=== PATIENT | female | born 1985 | race Caucasian/White ===

== ENCOUNTER 2023-05-27 20:51 | Emergency (ER) | payer OTHER, SELFPAY ==
--- NOTE | ~2023-05-27 | XR_ITS ---
EXAMINATION: XR chest 2V DATE: 05/27/2023 21:23 INDICATION: Sternal chest pain and shortness of breath TECHNIQUE: PA and lateral views of the chest were obtained. COMPARISON: Chest radiograph dated 06/22/2016 FINDINGS: Mild eventration along the right hemidiaphragm. Chronic calcified left lower lobe nodule consistent w ith old granulomatous disease. No other airspace opacities, pulmonary edema, pleural effusion or pneu mothorax. The cardiomediastinal silhouette is normal. Mild thoracic spondylosis. IMPRESSION: 1. No acute cardiopulmonary disease. Reviewed, dictated and finalized at location A.
[2023-05-27 20:51] VITALS: BP 139/89; PULSE 79; RESP 16; TEMP 36.8; O2SAT 100
--- NOTE | 2023-05-27 21:11 | ECG_ITS ---
Measurements Intervals [place] Rate: 54 P: 57 HI: 146 QRS: 39 QRSD: 111 T: 0 QT: 402 QTc: 384 Interpretive Statements SINUS BRADYCARDIA NONSPECIFIC T-WAVE ABNORMALITY Electronically Signed On 05-28-2023 12:45:29 CDT by Vickey Gamboa M.D.
--- NOTE | 2023-05-27 21:13 | ED.GENADULT ---
HPI - General Adult General Chief complaint: Back Pain/Injury Stated complaint: shortness of breath; pain in back Time Seen by Provider: 05/27/23 20:59 Source: patient Mode of arrival: ambulatory Limitations: no limitations History of Present Illness HPI narrative: 38 yo F with history of HLD, presents to ED concerning that she may have a heart attack. She had some upper back pain that started 2 weeks ago that radiated to her left chest. She recently finished a course of steroid for bronchitis. Today, she experienced chest and epigastric pain after eating some clam chowder. She said she's been undergoing significant anxiety lately. Onset (ago): hour(s) Location: chest Radiation: non-radiation Severity: moderate Quality: burning Pain Consistency: intermittent Relieving factors: none Exacerbating factors: none Associated symptoms: denies other symptoms Treatments prior to arrival: none Related Data Allergies Allergy/AdvReac Type Severity Reaction Status Date / Time No Known Allergies Allergy Unverified 03/14/19 16:50 Review of Systems Constitutional: Constitutional: Reports as per HPI and Reports no additional constitutional complaints Eyes: Eyes: Reports as per HPI and Reports no additional eye complaints ENT: Reports system reviewed and no additional complaints, except as documented and Reports as per HPI Cardiovascular: Cardiovascular: Reports as per HPI and Reports no additional cardiovascular complaints Respiratory: Respiratory: Reports as per HPI and Reports no additional respiratory complaints Gastrointestinal: Gastrointestinal: Reports as per HPI and Reports no additional gastrointestinal complaints Genitourinary: Genitourinary: Reports as per HPI Musculoskeletal: Musculoskeletal: Reports no additional musculoskeletal complaints and Reports as per HPI Integumentary/Breasts: Skin/Breast: Reports system reviewed and no additional complaints, except as docu and Reports as per HPI Neurologic: Reports system reviewed and no additional complaints, except as documented and Reports as per HPI Psychiatric: Psychiatric: Reports no additional psychiatric complaints and Reports as per HPI Endocrine: Endocrine: Reports no additional endocrine complaints and Reports as per HPI Hematologic/Lymphatic: Hematologic/Lymphatic: Reports no additional hematologic/lymphatic complaints and Reports as per HPI Allergic/Immunologic: Allergic/Immunologic: Reports no additional allergic/immunologic complaints and Reports as per HPI [facility] Family History Family History (Updated 01/22/19 @ 15:22 by DOCTOR UNKNOWN) Other Cerebrovascular accident Family history of coronary artery disease Hypertension Social History Social History Smoking status: Current every day smoker Alcohol intake: current Exam Const: General: cooperative, healthy appearing, comfortable, no acute distress, well developed, alert, awake, average body habitus and well nourished Nutritional Appearance: average body habitus and well nourished Orientation/consciousness: oriented to person, oriented to place and oriented to time Limitations: no limitations HENMT: Head: normal to inspection Ears: hearing grossly normal bilaterally, external ears normal and TM's normal bilaterally Face/Nose/Sinus: Normal external nose present, Normal nares present, No nasal polyps present, Normal nasal mucous membranes and turbinates present, Normal septum present, No nasal discharge present, normal facial exam, sinuses nontender and face symmetric Face and sinus: normal facial exam, sinuses nontender and face symmetric Mouth: Yes Normal oral and palatal mucosa present, Yes lip normal, Yes tongue normal, Yes Normal salivary glands and ducts present, Yes oropharynx normal and Yes moist mucous membranes Teeth and gingiva: dentition normal and gingiva normal Throat: posterior oropharynx normal, tonsils normal and uvula midline Eyes: General: appearance normal, both eyes a
--- NOTE | 2023-05-27 21:20 | PC.NURSE ---
2120-PT RETURNS FROM IMAGING VIA HOSPITAL WHEELCHAIR, ESCORTED BY [employer]. LAB CONTACTED, MIXING TECHNICIAN SPOKE WITH FRITZ TO MAKE AWARE OF PENDING LABS.
[2023-05-27] MEDS: FAMOTIDINE 20 MG TABLET 40 MG PO (21:26)
--- NOTE | 2023-05-27 21:28 | PC.NURSE ---
2128-LAB ARRIVES AT BEDSIDE
[2023-05-27 21:30] VITALS: BP 123/70; PULSE 59; RESP 14; O2SAT 97
[2023-05-27 21:40] LABS: Hematocrit 40.9 % (35.0-49.0); Hemoglobin 13.7 g/dL (12.0-15.0); Mean Corpuscular HGB Conc 33.5 g/dL (32.0-36.0); Mean Corpuscular Hemoglobin 32.5 pg (27.0-31.0); Mean Corpuscular Volume 96.9 fL (78.0-102.0); Mean Platelet Volume 10.5 fl (9.2-11.8); Platelet Count Result 246 K/mm3 (150-420); Red Blood Count 4.22 M/mm3 (4.20-5.40); Red Cell Distribution Width 12.2 % (11.6-14.4); White Blood Count 8.6 K/mm3 (4.8-10.8)
[2023-05-27 21:58] LABS: Alanine Aminotransferase 17 U/L (14-59); Albumin Level 3.5 g/dL (3.4-5.0); Alkaline Phosphatase 91 U/L (46-116); Anion Gap 8 mmol/L (8-16); Aspartate Amino Transferase 11 U/L (15-37); Bilirubin,Total 0.1 mg/dL (0.00-1.00); Blood Urea Nitrogen 13 mg/dL (7-18); Calcium 8.7 mg/dL (8.5-10.1); Carbon Dioxide 27 mmol/L (21-32); Chloride 105 mmol/L (98-108); Estimated CRCL calculation 87 ml/min; Estimated Glomerular Filt Rate > 60; Glucose 211 mg/dL (70-99); Osmolality Calculated 296 mOsm/kg (285-295); Potassium 3.9 mmol/L (3.5-5.1); Sodium 140 mmol/L (136-145); Total Protein 6.6 g/dL (6.4-8.2); Troponin I 4.9 ng/L (0.00-60.4)
[2023-05-27 22:00] VITALS: BP 117/51; PULSE 56; RESP 20; O2SAT 96
== END 2023-05-27 22:42 | disposition home or self-care (01) ==
PROVIDERS: Emergency Provider Emergency Medicine; PCP Internal Medicine
DX: K21.9 Gastro-esophageal reflux disease without esophagitis (principal); E78.5 Hyperlipidemia, unspecified; F17.200 Nicotine dependence, unspecified, uncomplicated
CPT/HCPCS: 36415; 71046; 80053; 84484; 85027; 93005; 99284; A9270

== ENCOUNTER 2023-06-21 16:35 | Outpatient (CLI) | payer OTHER, SELFPAY ==
--- NOTE | ~2023-06-21 | MM_ITS ---
EXAMINATION: MM screening jass BI w juan HISTORY: Screening mammogram TECHNIQUE: Craniocaudal and mediolateral oblique 3-D tomosynthesis images were obtained and synthetic 2-D images were generated. CAD analysis was submitted and interpreted. COMPARISON: No prior mammogram is available for comparison at this institution. BREAST PARENCHYMAL COMPOSITION:The breasts are extremely dense, which lowers the sensitivity of mammo graphy. FINDINGS: No suspicious mass, calcification, or architectural distortion are identified in either carlos ast to suggest malignancy. IMPRESSION: No mammographic evidence of malignancy. Recommend routine screening mammography in one year. BI-RADS Category 1: Negative Reviewed, dictated and finalized at location . [facility]
== END 2023-06-21 16:36 | disposition home or self-care (01) ==
LOC: ANHIMG 16:42
PROVIDERS: PCP Internal Medicine; Visit Provider Internal Medicine
DX: Z12.31 Encounter for screening mammogram for malignant neoplasm of breast (principal)
CPT/HCPCS: 77063; 77067

== ENCOUNTER 2024-05-10 09:24 | Outpatient (CLI) | payer OTHER, SELFPAY ==
--- NOTE | ~2024-05-10 | XR_ITS ---
EXAMINATION: XR chest 2V 05/10/2024 09:53 INDICATION: Productive cough and wheezing PROCEDURE: 2 view chest COMPARISON: 08/27/2022 FINDINGS: The lungs are clear. The cardiomediastinal silhouette is within normal limits. There are no pleural effusions. There is no pneumothorax suspected. IMPRESSION: 1: NO ACUTE CARDIOPULMONARY DISEASE. Reviewed, dictated and finalized at location B.
[2024-05-10 09:40] LABS: Basophils Absolute Auto 0.07 K/mm3 (0.00-0.10); Basophils Percent Auto 0.7 % (0.0-1.0); Eosinophils Absolute Auto 0.17 K/mm3 (0.02-0.50); Eosinophils Percent Auto 1.7 % (1.0-6.0); Hematocrit 41.5 % (35.0-49.0); Hemoglobin 14.3 g/dL (12.0-15.0); Immature Granulocyte Absolute 0.04 K/mm3 (0.00-0.00); Immature Granulocyte Percent A 0.4 % (0.0-0.0); Lymphocytes Absolute Auto 2.06 K/mm3 (1.10-4.50); Lymphocytes Percent Auto 20.6 % (18.0-42.0); Mean Corpuscular HGB Conc 34.5 g/dL (32-36); Mean Corpuscular Hemoglobin 32.9 pg (27.0-31.0); Mean Corpuscular Volume 95.4 fL (78.0-102.0); Mean Platelet Volume 10.1 fl (9.2-11.8); Monocytes Absolute Auto 0.73 K/mm3 (0.10-0.90); Monocytes Percent Auto 7.3 % (2.0-11.0); Neutrophils Absolute Auto 6.94 K/mm3 (1.70-7.20); Neutrophils Percent Auto 69.3 % (50.0-70.0); Platelet Count Result 250 K/mm3 (150-420); Red Blood Count 4.35 M/mm3 (4.20-5.40); Red Cell Distribution Width 12.7 % (11.6-14.4)
[2024-05-10 11:03] LABS: Anion Gap 9 mmol/L (4-12); Blood Urea Nitrogen 9 mg/dL (7-18); Carbon Dioxide 29 mmol/L (21-32); Chloride 104 mmol/L (98-108); Estimated Glomerular Filt Rate > 60; Glucose 103 mg/dL (70-99); Osmolality Calculated 292 mOsm/kg (285-295); Potassium 4.1 mmol/L (3.5-5.1); Sodium 142 mmol/L (136-145)
== END 2024-05-10 09:25 | disposition home or self-care (01) ==
LOC: CHSLAB 09:26
PROVIDERS: PCP Internal Medicine; Visit Provider Nurse Practitioner Family
DX: R05.8 Other specified cough (principal); R06.2 Wheezing
CPT/HCPCS: 36415; 71046; 80048; 80053; 85025

== ENCOUNTER 2025-06-17 07:28 | Outpatient (CLI) | payer OTHER, SELFPAY ==
--- OUTSIDE RECORDS SUMMARY | 2025-06-16 14:00 | XMS_ITS | Encounter Summary ---
Author Organization [facility] Address [address] [place] [address] Care Team Providers Care Entry Specialist Name Role Phone Jv Galvan MD Primary Care Provider [phone] Encounter Details Date Type Department Care Team (Late st Contact Info) Description 06/16/2025 2:00 PM REGIONAL MANAGER Lab [address] [id number] Urinary frequency; Sensation of pressure in bladder area Social History Tobacco Use Types Packs/Day Years Used Date Smoking Tobacco: Every Day Cigarettes 1 29.8 Started: 1995 Smokeless Tobacco: Current Alcohol Use Standard Drinks/Week Comments Yes 0 (1 standard drink = 0.6 oz pur e alcohol) AUDIT-C Answer Date Recorded Q1: How often do you have a drink containing alc ohol? Monthly or less 05/19/2025 Q2: How many drinks containi ng alcohol do you have on a typical day when you are drinking? 1 or 2 05/19/2025 Q3: How often do you have si x or more drinks on one occasion? Never 05/19/2025 Personal Safety Answer Date Recorded Have you ever been in or are you currently in a harmful physical or emotional relationship or is someone making you feel afraid or unsafe? Denies 06/09/2025 Comments No Sex and Gender Information Value Date Recorded Sex Assigned at Not on file Legal Sex Female 4:42 PM REGIONAL MANAGER Gender Identity Not on file Sexual Orientation Not on file documented as of this encounter Plan of Treatment Pending Results Name Type Priority Associated Diagnoses Date /Time Urine culture Urine, clean voided Microbiology Routine Urinary frequency Sensation of pressure in bladder area 06/16/2025 2:04 PM REGIONAL MANAGER documented as of this encounter Procedures Procedure Name Priority Date/Time Associated Diagnosis Comments URINALYSIS AND REFLEX TO MICROSCOPIC Routine 06/16/2025 2:04 PM REGIONAL MANAGER Urinary frequency Sensation of pressure in bladder area URINALYSIS, MICROSCOPIC ONLY Routine 06/16/2025 2:04 PM REGIONAL MANAGER Urinary frequency Sensation of pressure in bladder area documented in this encounter Results * (ABNORMAL) Urinalysis, microscopic only (06/16/2025 2:04 PM REGIONAL MANAGER) WBC, ur 0-5 0 - 5 /HPF RBC, ur 0-2 0 - 2 /HPF [facility] ([place]) Epithelial cells, squamous, ur 1-5 0 - 5 /HPF [facility] ([place]) Bacteria, ur 2+(A) [facility] ([place]) Mucous, ur Present(A) [facility] ([place]) Urine, clean voided 06/16/2025 2:04 PM REGIONAL MANAGER 06/16/2025 2:36 PM REGIONAL MANAGER us Ovidio Gordon MD LAB URINE ORDERABLES Final Result [facility] ([place]) [address] [facility] [place] [address] * (ABNORMAL) Urinalysis reflex to microscopic (06/16/2025 2:04 PM REGIONAL MANAGER) Color, ur Straw Yellow Clarity, ur Clear Clear [facility] ([place]) Specific gravity, ur 1.008 1.003 - 1.030 [facility] ([place]) pH, urine 6.0 [facility] ([place]) Comment: Interpretive Data U rine pH is affected by diet, medications, systemic acid-base disturbances, and renal tubular function. pH may affect urinary stone formation. For example, urine pH below 6.0 may help reduce the tendency for calcium phosphate stones and pH greater than 6.0 may reduce the tendency for uric acid stone formation. Source: [facility] Current Interpretive Data was last revised on 2017 Protein, ur ql Negative Negative [facility] ([place]) Glucose, ur ql Negative Negative [facility] ([place]) Ketones, ur Negative Negative [facility] ([place]) Bilirubin, ur Negative Negative [facility] ([place]) Blood, ur Negative Negative [facility] ([place]) Urobilinogen, ur <2.0 <2.0 mg/dL [facility] ([place]) Nitrite, ur Negative Negative [facility] ([place]) Leukocyte esterase, ur 1+(A) Negative [facility] ([place]) UA reflex comment Reflex to microscopic UA will be performed. [facility] ([place]) Urine, clean voided 06/16/2025 2:04 PM REGIONAL MANAGER 06/16/2025 2:36 PM REGIONAL MANAGER us Ovidio Gordon MD LAB URINE ORDERABLES Final Result [facility] ([place]) [address] [facility] [place] [address] documented in this encounter Visit Diagnoses Diagnosis Urinary frequency Sensation of pressure in bladder area documented in this encounter Care Teams Entry Specialist Relationship Specialty Start Date End Date Jv Galvan MD PCP - General 07/20/17 documented as of this encounter
--- NOTE | ~2025-06-17 | MM_ITS ---
EXAMINATION: MM screening jass BI w juan HISTORY: Screening TECHNIQUE: Craniocaudal and mediolateral oblique 3-D tomosynthesis images were obtained and synthetic 2-D images were generated. CAD analysis was submitted and interpreted. COMPARISON: 06/21/2023 BREAST PARENCHYMAL COMPOSITION: The breasts are extremely dense, which lowers the sensitivity of mammography. FINDINGS: There is no evidence of suspicious mass, calcification, or architectural distortion to suggest malignancy in either breast. IMPRESSION: 1. No mammographic evidence of malignancy. 2. Recommend routine screening mammography in one year. BI-RADS Category 1: Negative Reviewed, dictated and finalized at location B. IFIED HYPERBARIC TECHNOLOGIST
--- OUTSIDE RECORDS SUMMARY | 2025-06-17 07:35 | XMS_ITS | Clinical Summary ---
Author Organization [facility] [employer] Address [address] [place] [address] Care Team Providers Care Timber Treating Tank Operator Name Role Phone Unavailable Primary Care Provider Unavailabl e Source Comments [facility] [employer],non-owned Affiliates and Associated Physician Practices is amultiple site organization consisting of ambulatory clinics and hospital sitesin [place], [place], [place] and [place]. This disclosure is being madepursuant to the Care Everywhere program and may not contain all information available regarding this patient. Last updated 18.[employer] [employer] [facility] Allergies No known active allergies Medications * Be aware that medications may not be up to date on this document. Alwaysverify current medications with the patient. No known medications Social History Tobacco Use Types Packs/Day Years Used Date Smoking Tobacco: Every Day Smokeless Tobacco: Never Comments No Sex and Gender Information Value Date Recorded Sex Assigned at Not on file Legal Sex Female 7:00 AM GRINDING MACHINE OPERATOR Gender Identity Not on file Sexual Orientation Not on file Last Filed Vital Signs Vital Sign Reading Time Taken Comments Blood Pressure 140/90 10/16/2018 10:08 AM GRINDING MACHINE OPERATOR Pulse 93 10/16/2018 10:08 AM GRINDING MACHINE OPERATOR Temperature 38.2 C (100.8 F) 10/16/2018 10:08 AM GRINDING MACHINE OPERATOR Respiratory Rate 16 10/16/2018 10:08 AM GRINDING MACHINE OPERATOR Oxygen Saturation 97% 10/16/2018 10:08 AM GRINDING MACHINE OPERATOR Inhaled Oxygen Concentration - - Weight 81.6 kg (180 lb) 10/16/2018 10:08 AM GRINDING MACHINE OPERATOR Height 165.1 cm (5' 5) 10/16/2018 10:08 AM GRINDING MACHINE OPERATOR Body Mass Index 29.95 10/16/2018 10:08 AM GRINDING MACHINE OPERATOR Plan of Treatment Health Maintenance Due Date Last Done Comments LIPID TESTING 1985 MAMMOGRAM 1985 HIV SCREENING 1998 HEPATITIS C SCREENING 05/08/2001 DTAP/TDAP/TD VACCINES (1 - Tdap) 2002 HEPATITIS B VACCINE (1 of 3 - 19+ 3-dose series) 2002 HPV VACCINE (1 - 3-dose SCDM series) 2010 DEPRESSION SCREENING 08/14/2024 COVID-19 VACCINE (1 - 2023-2 5 season) 2025 INFLUENZA VACCINE (#1) 2025 ZOSTER VACCINE (1 of 2) 2033 HIB VACCINE Aged Out No longer eligi ble based on patient's age to complete this topic MENINGOCOCCAL (Group B) VACC INE SHARED DECISION-MAKING Aged Out No longer eligibl e based on patient's age to complete this topic MENINGOCOCCAL GROUPS A/C/Y/W VACCINE Aged Out No longer eligible b ased on patient's age to complete this topic PNEUMOCOCCAL VACCINE Aged Out No long er eligible based on patient's age to complete this topic Insurance * Guarantor: [employer] Account Type Relation to Patient Date of Phone Billing Address Personal/Family Self 1985 [address] [place] [address] [facility] * Guarantor: [employer] Account Type Relation to Patient Date of Phone Billing Address Personal/Family Self 1985 [address] [place] [address]
--- OUTSIDE RECORDS SUMMARY | 2025-06-17 07:35 | XMS_ITS | Encounter Summary ---
Author Organization [facility] Address [address] [place] [address] Phone Care Team Providers Care Timber Management Specialist Name Role Phone Jv Galvan MD Primary Care Provider [phone] Encounter Details Date Type Department Care Team (Late st Contact Info) Description 06/16/2025 Results Follow-Up [facility] Medicine Obstetrics and Gynecology [address] [facility] 7th [address] [place] [address] Ovidio Gordon MD [address] [place] [address] Surgical pathology Social History Tobacco Use Types Packs/Day Years [...] on file Legal Sex Female 4:42 PM TIGHTENING MACHINE OPERATOR Gender Identity Not on file Sexual Orientation Not on file documented as of this encounter Miscellaneous Notes * Telephone Encounter - Kathryn Apodaca RN - 06/16/2025 1:03 PM CST Call to patient and reviewed benign pathology result. C/o urinary frequency & some bladder pressure. Patient to leave UA at [facility] today to r/o UTI. She is PO 1 week LSC supracervical hyst, sacrocolpopexy, Celaya culdoplasty &cysto with Dr. Gordon. TENING MACHINE OPERATOR * Telephone Encounter - Kathryn Apodaca RN - 06/16/2025 12:41 PM TIGHTENING MACHINE OPERATOR ----- Message from Ovidio Gordon MD sent at 06/16/2025 12:38 PM TIGHTENING MACHINE OPERATOR ----- Please notify pt of benign surg path report. ----- Message ----- From: Interface, Lab Results In Sent: 06/13/2025 4:11 PM TIGHTENING MACHINE OPERATOR To: Ovidio Gordon MD TENING MACHINE OPERATOR documented in this encounter Plan of Treatment Pending Results Name Type Priority Associated Diagnoses Date /Time Urine culture Urine, clean voided Microbiology Routine Urinary frequency Sensation of pressure in bladder area 06/16/2025 2:04 PM TIGHTENING MACHINE OPERATOR Scheduled Orders Name Type Priority Associated Diagnoses Orde r Schedule Urine culture Urine, clean voided Microbiology Routine Urinary frequency Sensation of pressure in bladder area Expected: 06/19/2025, Expires: 06/16/2026 documented as of this encounter Results * (ABNORMAL) Urinalysis reflex to microscopic (06/16/2025 2:04 PM TIGHTENING MACHINE OPERATOR) Color, ur Straw Yellow Clarity, ur Clear Clear [facility] ([place]) Specific gravity, ur 1.008 1.003 - 1.030 [facility] ([place]) pH, urine 6.0 [facility] ([place]) Comment: Interpretive Data U rine pH is affected by diet, medications, systemic acid-base disturbances, and renal tubular function. pH may affect urinary stone formation. For example, urine pH below 6.0 may help reduce the tendency for calcium phosphate stones and pH greater than 6.0 may reduce the tendency for uric acid stone formation. Source: [facility] [employer] Current Interpretive Data was last revised on [...] Reflex to microscopic UA will be performed. [facility] ([place]) Urine, clean voided 06/16/2025 2:04 PM TIGHTENING MACHINE OPERATOR 06/16/2025 2:36 PM TIGHTENING MACHINE OPERATOR us Ovidio Gordon MD LAB URINE ORDERABLES Final Result [facility] ([place]) [address] [facility] Department [place] [address] documented in this encounter Visit Diagnoses Diagnosis Urinary frequency- Primary Sensation of pressure in bladder area documented in this encounter Care Teams Timber Management Specialist Relationship Specialty Start Date End Date Jv Galvan MD PCP - General 07/20/17 documented as of this encounter
--- OUTSIDE RECORDS SUMMARY | 2025-06-17 07:35 | XMS_ITS | Clinical Summary ---
Author Organization [facility] Address [address] [place] [address] Care Team Providers Care Yarn Salvager Name Role Phone Jv Galvan MD Primary Care Provider [phone] Allergies Active Allergy Reactions Criticality Noted Date Comments Chicken Derived Unknown 05/19/2025 Medications albuterol HFA (PROVENTIL HFA,VENTOLIN HFA,PROAIR HFA) 90 mcg/actuation inhalerIndicatio ns:Mild intermittent asthma with acute exacerbation Inhale 2 puffs every 6 (six) hours as needed for wheezing 1 each 3 Active tirzepatide 5 mg/0.2 mL syringeIndicatio ns:weight loss Inject 5 mg under the skin every 7 days Active cyclobenzaprine (FLEXERIL) 10 mg tablet Take 1 tablet (10 mg total) by mouth 3 (three) times a day as needed for muscle spasms Active acetaminophen 500 mg capsuleIndicatio ns:Pain Take 2 capsules (1,000 mg total) by mouth every 6 (six) hours 30 tablet 2 5 Active ibuprofen (ADVIL,MOTRIN) 600 mg tabletIndication s:Pain,Postopera tive Acute Pain Take 1 tablet (600 mg total) by mouth every 6 (six) hours 30 tablet 2 5 Active ondansetron (ZOFRAN) 4 mg tablet Take 1 tablet (4 mg total) by mouth 4 (four) times a day as needed for nausea or vomiting 20 tablet 5 Active oxyCODONE (ROXICODONE) 5 mg immediate release tabletIndication s:Pain Take 1 tablet (5 mg total) by mouth every 4 (four) hours as needed for pain 15 tablet 5 Active polyethylene glycol (MIRALAX) 17 gram/dose bulk powderIndication s:constipation Take 17 g by mouth daily 298 g 5 Active estradioL (ESTRACE) 0.01 % (0.1 mg/gram) vaginal cream Apply nightly to vagina for 1 week, then Monday// Monday 42.5 g 5 5 02/06/20 26 Active albuterol HFA (PROVENTIL HFA,VENTOLIN HFA,PROAIR HFA) 90 mcg/actuation inhalerIndicatio ns:Mild intermittent asthma with acute exacerbation Inhale 2 puffs every 6 (six) hours as needed for wheezing 1 each 2 05/19/20 Discontinu ed(Error) cyclobenzaprine (FLEXERIL) 10 mg tablet Take 1 tablet (10 mg total) by mouth 3 (three) times a day 5 05/19/20 Discontinu ed(Therapy completed) famotidine (PEPCID) 40 mg tablet daily 3 05/19/20 Discontinu ed(Error) Active Problems Problem Noted Date Diagnosed Date Uterovaginal prolapse 06/09/2025 Skin lesion 05/19/2025 Overview (05/19/2025): Right Cheek Pulmonary nodule 05/19/2025 Polyarthralgia 05/19/2025 Hemorrhoid 05/19/2025 Hiatal hernia with GERD 05/19/2025 GERD (gastroesophageal reflux disease) Epigastric pain 05/19/2025 Cyst of bone of left hand 05/19/2025 Overview (05/19/2025): 3rd Metacarpal Chest pain due to GERD 05/19/2025 Cellulitis of arm 05/19/2025 Overview (05/19/2025): Right Upper Limb Bronchitis 05/19/2025 Bilateral knee pain 05/19/2025 Laguerre's cyst, right 05/19/2025 Acute meniscal tear, lateral 05/19/2025 Urethral sphincter deficiency, intrinsic (ISD) 0 02/28/2025 Incomplete uterovaginal prolapse 02/21/2025 Chronic constipation 02/21/2025 Mixed stress and urge urinary incontinence 02/21 Urinary retention with incomplete bladder emptyi ng 02/21/2025 Tear of left glenoid labrum 03/09/2017 Shoulder dislocation, left, sequela 02/21/2017 Overview (05/19/2025): Subluxation X 2 - Follows Ortho Encounters Date Type Department Care Team Description 06/16/2025 2:[address] [address] Urinary frequency; Sensation of pressure in bladder area 06/16/2025 Results Follow-Up [facility] Ob[facility]etrics [facility] [address] [facility] 7th Floor [address] [place] [phone] Ovidio Gordon MD Surgical pathology 06/11/2025 Telephone [facility] Ob[facility]etrics [facility] Gynecology [address] [place] [phone] Cherie Richmond RN Post-Op Call 06/09/2025 7:30 AM CDT - 06/09/2025 1:15 PM CDT Surgery [facility] [address] [place] [address] Ovidio Gordon MD XI SUPRACERVICAL HYSTERECTOMY - LAPAROSCOPIC ROBOTIC ASSISTED 06/09/2025 7:28 AM CDT Anesthesia Event [facility] [address] [place] [address] Cooper Alonso MD Gupte, Gaurang, MD 06/09/2025 5:20 AM CDT - 06/10/2025 11:51 AM CDT Hospital Encounter [address] [address] Ovidio Gordon MD Incomplete uterovaginal prolapse; Mixed stress and urge urinary incontinence; Urethral sphincter deficiency, intrinsic (ISD) Discharge Disposition: Discharge to home or self care 06/06/2025 Telephone [facility] Ob[facility]etric[facility]cology [address] [facility] 7th Floor [address] [place] [address] Tricia Rowland 05/19/2025 4:00 PM CDT Office Visit [facility] [address] [place] [address] Floor [address] [place] [phone] Ovidio Gordon MD Incomplete uterovaginal prolapse (Primary Dx); Mixed stress and urge urinary incontinence; Urethral sphincter deficiency, intrinsic (ISD) 05/19/2025 2:00 PM CDT Pre-Admission Testing [facility] for Preoperative Assessment and Planning [facility] ([facility]) [address] [place] [phone] Pre-op examination (Primary Dx); Incomplete uterovaginal prolapse; Mixed stress and urge urinary incontinence; Urethral sphincter deficiency, intrinsic (ISD) 03/31/2025 8:40 AM CDT Office Visit [facility]etric[facility]necology [address] [place] [address] Floor [address] [place] [address] Ovidio Gordon MD Incomplete uterovaginal prolapse (Primary Dx); Mixed stress and urge urinary incontinence; Urethral sphincter deficiency, intrinsic (ISD) 03/21/2025 8:20 AM CDT - 03/21/2025 11:59 PM CDT Hospital Encounter [facility] [address] [place] [address] Incomplete uterovaginal prolapse; Constipation by outlet dysfunction Discharge Disposition: Discharge to home or self care from Last 3 Months Immunizations Immunization Administration Dates Next Due DTP 02/06/1989, 5,1983,1983, 983 IPV 02/06/1989, 5,1983,1983, 983 MMR 03/30/1992,08/16/1984 OPV 02/06/1989, 5,1983,1983, 983 Tetanus toxoid, adsorbed 06/28/2016,06/15/2016 ZOSTER LIVE 06/28/2016,06/15/2016 Surgical History Surgery Date Site/Laterality Comments TONSILLECTOMY Tonsillectomy HERNIA REPAIR 2019 Hernia repair Medical History Medical History Date Comments Hx Other Medical Back pain PONV (postoperative nausea and vomiting) Asthma 1985 Urinary incontinence 2007 Rectocele 2011 Motion sickness Family History Medical History Relation Name Comments defects Other 1 Aunt clubbed foot Diabetes type II Other 1 Aunt clubbed foot Family history of Diabetes mellitus type 2; Arthritis Other 2 Son clubbed feet Family hist ory of Arthritis; defects Other 2 Son clubbed feet Hypertension Other 3 Family history of Hypertension; Mental illness Other 4 Family histor y of Mental illness; Relation Name Status Comments Other 1 Aunt clubbed foot Other 2 Son clubbed feet Other 3 Other 4 Social History Tobacco Use Types Packs/Day Years Used Date Smoking Tobacco: Every Day Cigarettes 1 29.8 Started: 1995 Smokeless Tobacco: Current Tobacco Cessation:Ready to Q uit: Not Asked; Counseling Given: Not Answered Alcohol Use Standard Drinks/Week Comments Yes 0 [...] on file Legal 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 Gender Identity Not on file Sexual Orientation Not on file Obstetrics History Para Term AB IAB SAB Ectopic Multiple Livin g Live Births 2 Date Outcome GA Total Labor Labor/2nd/3rd Weight Sex Type Anes PTL Sierra A1 A5 Name Clin Vaginal Vaginal Last Filed Vital Signs Vital Sign Reading Time Taken Comments Blood Pressure 132/84 06/10/2025 12:05 AM CDT Pulse 62 06/10/2025 12:05 AM CDT Temperature 37.2 C (98.9 F) 06/10/2025 12:05 AM CDT Respiratory Rate 18 06/10/2025 12:05 AM CDT Oxygen Saturation 98% 06/10/2025 12:05 AM CDT Inhaled Oxygen Concentration - - Weight 86.6 kg (191 lb) 06/09/2025 5:51 AM CDT Height 165.1 cm (5' 5) 06/09/2025 5:51 AM CDT Body Mass Index 31.78 06/09/2025 5:51 AM CDT Plan of Treatment Health Maintenance Due Date Last Done Comments Breast Cancer Screening-Mammogram 1983 Cervical Cancer Screening 1985 Depression Screening 1985 Hepatitis C Screening 1983 Hepatitis B Screening 2001 Regular Well Visit/Exam 18-64 2001 Pneumococcal vaccine <65 (1 of 2 - PCV) 2002 HPV Vaccines (1 - 3-dose SCD M series) 2010 DTaP/Tdap/Td Vaccine (6 - Tdap) 06/29/2016 06/28/2016, 06/15/2016, 02/06/1989, Additional history exists Varicella Vaccines (1 of 2 - 13+ 2-dose series) 07/26/2016 Covid-19 Vaccine ( - 2024-2 6 season) 2025 11/27/2020, 10/30/2020 Influenza Vaccine (#1) 2025 Medical Devices Implanted Type Area Poultry Sexer Device Identifier Shelf Expiration Date Model / Serial / Lot [employer] Mesh Surgical Pelvic Synthetic Vertessa Lite 4x22cm [id number] - [id number] Implanted:Qty: 1 on 06/09/2025 by Ovidio Gordon MD at [facility] Mesh N/A: Pelvis [employer] 01/14/2029 [id number] / / [id number] [employer] Tvt Prolene 45x1.1cm Tape Mesh Transvaginal Blue [id number] - [id number] Implanted:Qty: 1 on 06/09/2025 by Ovidio Gordon MD at [facility] Other - see comments N/A: Urethra [employer] Surgery 2027 [id number] / / [id number] [place] Suture Pushlock Biocomposite Short L12.5 Mm Od2.9 Mm Cannulated Eyelet Handle Inspector Dials Sterile Disposable - [id number] - [id number] Implanted:Qty: 4 on 07/20/2017 by Abiodun Hairston MD at [facility] Left: Shoulder [employer] [id number] 02/10/2019 [id number] C / [id number] / [id number] Procedures Procedure Name Priority Date/Time Associated Diagnosis Comments URINALYSIS, MICROSCOPIC ONLY Routine 06/16/2025 2:04 PM RULING TECHNICIAN Urinary frequency Sensation of pressure in bladder area URINALYSIS AND REFLEX TO MICROSCOPIC Routine 06/16/2025 2:04 PM RULING TECHNICIAN Urinary frequency Sensation of pressure in bladder area EGFR Routine 06/10/2025 5:17 AM CDT BASIC METABOLIC PANEL Routine 06/10/2025 5:17 AM CDT CBC WITHOUT DIFFERENTIAL Routine 06/10/2025 5:17 AM CDT SURGICAL PATHOLOGY Routine 06/09/2025 12 :01 PM CDT Incomplete uterovaginal prolapse Mixed stress and urge urinary incontinence Urethral sphincter deficiency, intrinsic (ISD) MI AN PROCEDURE PLACEHOLDER Routine 06/09/2025 7:49 AM CDT MI AN PROCEDURE PLACEHOLDER Routine 06/09/2025 7:48 AM CDT MI AN ELECTIVE ENDOTRACHEAL AIRWAY Routine 06/09/2025 7:48 AM CDT CYSTOSCOPY 06/09/2025 7:33 AM CDT Incomplete uterovaginal prolapse Mixed stress and urge urinary incontinence Urethral sphincter deficiency, intrinsic (ISD) SLING - URETHRAL 06/09/2025 7:33 AM CDT Incomplete uterovaginal prolapse Mixed stress and urge urinary incontinence Urethral sphincter deficiency, intrinsic (ISD) COLPOPEXY ROBOTIC XI 06/09/2025 7:33 AM CDT Incomplete uterovaginal prolapse Mixed stress and urge urinary incontinence Urethral sphincter deficiency, intrinsic (ISD) XI SALPINGO/OOPHORECTO MY - LAPAROSCOPIC ROBOTIC ASSISTED 06/09/2025 7:33 AM CDT Incomplete uterovaginal prolapse Mixed stress and urge urinary incontinence Urethral sphincter deficiency, intrinsic (ISD) XI HYSTERECTOMY - LAPAROSCOPIC ROBOTIC ASSISTED 06/09/2025 7:33 AM CDT Incomplete uterovaginal prolapse Mixed stress and urge urinary incontinence Urethral sphincter deficiency, intrinsic (ISD) TYPE AND SCREEN STAT 06/09/2025 6:15 AM CDT POCT HCG, URINE Routine 06/09/2025 6:00 AM CDT DIFFERENTIAL AUTO Routine 05/19/2025 3:3 6 PM CDT Incomplete uterovaginal prolapse Mixed stress and urge urinary incontinence Urethral sphincter deficiency, intrinsic (ISD) CBC WITH AUTO DIFFERENTIAL Routine 05/19/2025 3:36 PM CDT Incomplete uterovaginal prolapse Mixed stress and urge urinary incontinence Urethral sphincter deficiency, intrinsic (ISD) TYPE AND SCREEN 14 DAY Routine 05/19/2025 3:36 PM CDT Incomplete uterovaginal prolapse Mixed stress and urge urinary incontinence Urethral sphincter deficiency, intrinsic (ISD) HCG, URINE, QUALITATIVE Routine 05/19/2025 3:36 PM CDT Pre-op examination URINALYSIS AND REFLEX TO MICROSCOPIC AND CULTURE Routine 05/19/2025 3:36 PM CDT Pre-op examination FL ENEMA W/DEFECO Schedule Routine, Read Routine (OP Routine) 03/21/2025 9:48 AM CDT Incomplete uterovaginal prolapse Constipation by outlet dysfunction from Last 3 Months Results * (ABNORMAL) Urinalysis reflex to microscopic (06/16/2025 2:04 PM RULING TECHNICIAN) Color, ur Straw Yellow Clarity, ur Clear Clear [facility] ([place]) Specific gravity, ur 1.008 1.003 - 1.030 [facility] ([place]) pH, urine 6.0 [facility] ([place]) Comment: Interpretive Data U rine pH is affected by diet, medications, systemic acid-base disturbances, and renal tubular function. pH may affect urinary stone formation. For example, urine pH below 6.0 may help reduce the tendency for calcium phosphate stones and pH greater than 6.0 may reduce the tendency for uric acid stone formation. Source: [facility] [employer] Current Interpretive Data was last revised on [...] ([place]) Urine, clean voided 06/16/2025 2:04 PM RULING TECHNICIAN 06/16/2025 2:36 PM RULING TECHNICIAN us Ovidio Gordon MD LAB URINE ORDERABLES Final Result [facility] ([place]) [address] [facility] Department [place] [address] * (ABNORMAL) Urinalysis, microscopic only (06/16/2025 2:04 PM RULING TECHNICIAN) WBC, ur 0-5 0 - 5 /HPF RBC, ur 0-2 0 - 2 /HPF [facility] ([place]) Epithelial cells, squamous, ur 1-5 0 - 5 /HPF [facility] ([place]) Bacteria, ur 2+(A) [facility] ([place]) Mucous, ur Present(A) [facility] ([place]) Urine, clean voided 06/16/2025 2:04 PM RULING TECHNICIAN 06/16/2025 2:36 PM RULING TECHNICIAN us Ovidio Gordon MD LAB URINE ORDERABLES Final Result [facility] ([place]) [address] [facility] Department [place] [address] * eGFR (06/10/2025 5:17 AM CDT) eGFR 80 >=60 mL/min/1. 73 m2 Comment: Interpretive Data Reference Interval Normal >/= 90 mL/min/1.73m2 Mildly decreased* 60 - 89 mL/min/1.73m2 Mildly to moderately decreased 45 - 59 mL/min/1.73m2 Moderately to severely decreased 30 - 44 mL/min/1.73m2 Severely decreased 15 - 29 mL/min/1.73m2 Kidney Failure < 15 mL/min/1.73m2 *Relative to young adult level Estimated glomerular filtration rate is determined by the 2020 CKD-EPI equation recommended by the National Kidney Foundation (A Unifying Approach to GFR Estimation: Recommendations of the NKF-ASK Task Force on Reassessing the Inclusion of Race in Diagnosing Kidney Disease, JASN 2020). The CKD-EPI equation should not be used for patients with unstable renal function and has not been validated in children and those over 70. Current interpretive data was last reviewed 2021. Blood 06/10/2025 5:17 AM CDT 06/10/2025 6:26 AM CDT us Boni Lowe MD LAB BLOOD ORDERABLES Kerri l Result [facility] [address] [facility] Department [place] [address] * (ABNORMAL) CBC without differential (06/10/2025 5:17 AM CDT) WBC 12.76(H) 3.80 - 9.90 K/cumm Hgb 12.7 11.9 - 15.5 g/dL [facility] Hct 36.3 35.6 - 45.5 % [facility] Plt 238 150 - 400 K/cumm [facility] MPV 10.5 9.1 - 12.3 fL [facility] RBC 3.95 3.90 - 5.20 M/cumm [facility] MCV 91.9 81.3 - 96.4 fL [facility] MCH 32.2 27.1 - 33.3 pg [facility] MCHC 35.0 32.3 - 35.7 g/dL [facility] RDW CV 12.8 11.1 - 14.9 % [facility] RDW SD 43.2 35.7 - 48.1 fL [facility] NRBC abs 0.00 0.00 - 0.01 K/cumm [facility] Blood 06/10/2025 5:17 AM CDT 06/10/2025 6:26 AM CDT Boni Lowe MD LAB BLOOD ORDERABLES Kerri santillan Result [facility] [address] [facility] Department [place] [address] * (ABNORMAL) Basic metabolic panel (06/10/2025 5:17 AM CDT) Sodium 138 135 - 145 mmol/L Potassium, pl 4.0 3.3 - 4.9 mmol/L [facility] Chloride 108 97 - 110 mmol/L [facility] CO2 23 22 - 32 mmol/L [facility] Anion gap 7 2 - 15 mmol/L [facility] BUN 6 6 - 25 mg/dL [facility] Creatinine 0.92 0.60 - 1.10 mg/dL [facility] Glucose 91 70 - 199 mg/dL [facility] Comment: Interpretive Data Fasting glucose >/= 126 mg/dl is diagnostic for diabetes. Fasting is defined as no caloric intake for at least 8 hours. Fasting glucose between 100 mg/dl to 125 mg/dl is diagnostic of prediabetes. In a patient with classic symptoms of hyperglycemia or hyperglycemic crisis, a random glucose >/= 200 mg/dl is diagnostic for diabetes. In the absence of unequivocal hyperglycemia, results should be confirmed by repeat testing. The classification and Diagnosis of Diabetes Diabetes Care 2021; 46: S19-S40. Current interpretive data was last revised 2022. Calcium 8.4(L) 8.5 - 10.3 mg/dL [facility] Blood 06/10/2025 5:17 AM CDT 06/10/2025 6:26 AM CDT us Boni Lowe MD LAB BLOOD ORDERABLES Kerri santillan Result [facility] Department [place] [address] * Surgical pathology (06/09/2025 12:01 PM CDT) Tissue (Uterus with/without tubes & ovaries, Non-neoplastic) 06/09/2025 12:01 PM CDT Narrative PATHOLOGY [facility] - 06/13/2025 4:10 PM CDT EPIC results best viewed via link to PDF [facility] [place] [address] Note to Patients: This report may contain a detailed description of human tissue sent by a health care provider to the laboratory for pathologic evaluation. The content of this report is essential for diagnosis and may provide important critical findings. This information may be unfamiliar to patients to review without a medical professional present. It is advised that the patient review this report in the presence of a health care provider who can answer questions and explain the details. SURGICAL PATHOLOGY REPORT FINAL Patient Name: LE PENA Gender: F : 1985 (Age: 40) [address]: [address] [place] [phone] Hospital #: [id number] Taken:06/09/2025 Received:06/09/2025 Reported: 06/13/2025 Patient Type: [facility] OP In Bed Service: Gynecology Location: [facility] 5900 Physician(s): Ovidio Gordon M.D. Jv Galvan M.D. Diagnosis: Uterus, right and left fallopian tube, fragmented supracervical hysterectomy - Endometrium with secretory pattern - Myometrium with no histologic abnormality - Right and left fallopian tube with paratubal cyst no histologic abnormality krpr/06/12/2025 18:48 By this signature, I attest that the above diagnosis is based upon my personal examination of the slides(and/or other material indicated in the diagnosis). Afia Gudino M.D. Report Electronically Reviewed and Signed Out By Afia Gudino M.D. 06/13/2025 16:10:44 Microscopic Description and Comment: Microscopic examination substantiates the above cited diagnosis. Melissa Ballard M.D. History: The patient is a 40-year-old woman with incomplete uterovaginal prolapse and mixed stress and urge urinary incontinence. Operative procedure: Laparoscopic robotic assisted hysterectomy, salpingectomy, colpopexy, urethral sling and colposcopy. Specimen(s) Received: A: Body of uterus, bilateral fallopian tubes Gross Description: Received in formalin labeled with the patient's identifiers and designated body of uterus, bilateral fallopian tubes is an 89 g morcellated supracervical hysterectomy specimen (9 x 8 x 4.5 cm in aggregate greatest dimensions). Also provided are two red-mendoza fallopian tubes with fimbriated ends (5.2 x 0.7 cm, and 5.9 x 0.5 cm). The longer tube displays a fimbriated excrescence near the fimbriated end (up to 1.1 x 0.5 cm). The shorter tube displays a 1.0 cm translucent and smooth lined paratubal simple cyst with a fatty fibrovascular stalk (1.5 x 0.3 cm) located near the fimbriated end. The fragmented uterus displays mildly trabeculated pale moore-mendoza myometrium up to 1.8 cm in thickness and thin, flat to granular moore-red endometrial mucosa. A fragmented, apparent 0.9 cm fibrous nodule is also identified (included in A1). Sections find the apparent endometrial mucosa measuring up to 0.2 cm in thickness. Sections through the tubes find patent lumens. No gross evidence of malignancy is identified. Quality Assurance Supervisor Final sections are submitted:A1-A2 = chemical sales representative endomyometrium (orientation unspecified); A3 = chemical sales representative shorter tube including entire fimbriated end; A4 = chemical sales representative longer tube including entire fimbriated end. Jar 2. sxv/06/10/2025 09:09 PA(s): Mohan Hayward, MS, PA (ASCP)CM By this signature, I attest that the above diagnosis is based upon my personal examination of the slides(and/or other material). Addenda/Procedures The performance characteristics of some immunohistochemical stains, fluorescence in-situ hybridization tests and immunophenotyping by flow cytometry cited in this report (if any) were determined by the Surgical Pathology and Flow Cytometry Departments at [facility] as part of an ongoing director quality systems program and in compliance with federally mandated regulations drawn from the Clinical Laboratory Improvement Act of 1988 (CLIA '88). Some of these tests rely on the use of analyte specific reagents and are subject to specific labeling requirements by the US Food and Drug Administration. Such diagnostic tests may only be performed in a facility that is certified by the Department of Health and Human Services as a high complexity laboratory under CLIA '88. The FDA has determined that such clearance or approval is not necessary. This test is used for clinical purposes. It should not be regarded as investigational or for research. Nevertheless, federal rules concerning the medical use of analyte specific reagents require that the following disclaimer be attached to the report: This test was developed and its performance characteristics determined by the Surgical Pathology and Flow Cytometry Departments of [facility]. It has not been cleared or approved by the U. S. Food and Drug Administration. IMAGES AND SCANNED DOCUMENTS, IF INCLUDED, ONLY VIEWABLE IN PDF VERSION OF REPORT us Ovidio Gordon MD LAB PATHOLOGY ORDERABLES Fi nal Result PATHOLOGY [facility] 3rd Floor [place], [place] [phone] * MI AN PROCEDURE PLACEHOLDER (06/09/2025 7:49 AM CDT) Narrative Rosalind Dickerson CRNA - 06/09/2025 7:49 AM CDT Rosalind Dickerson CRNA 06/09/2025 7:49 AM Peripheral IV Catheter Patient location: OR Staff: Supervising provider: Cooper Alonso MD Placed by: WIRELESS RETAIL MANAGER: Rosalind Dickerson CRNA Preprocedure prep: Prep solution: chlorhexadine PPE: gloves and provider hat/mask PIV line: Laterality: left Site: hand Catheter size: 18 g Technique: anatomical landmarks, direct visualization and palpatation Procedure details: good blood return and occlusive dressing applied Number of attempts: 1 Assessment: Events: patient tolerated procedure well with no complications Cooper Alonso MD ANESTHESIA ORDERABLES Fi nal Result * MI AN ELECTIVE ENDOTRACHEAL AIRWAY, MI AN PROCEDURE PLACEHOLDER (06/09/2025 7:48 AM CDT) Narrative Rosalind Dickerson CRNA - 06/09/2025 7:48 AM CDT Rosalind Dickerson CRNA 06/09/2025 7:49 AM Airway Patient location: OR Urgency: elective Indications for airway management: anesthesia Difficult airway: no Staff: Supervising provider: Cooper Alonso MD Placed by: WIRELESS RETAIL MANAGER: Rosalind Dickerson CRNA Emergent airway documentation: Risks and benefits discussed: yes Consent obtained: yes Consent given by: patient Airway prep: Preoxygenated: yes Patient position: sniffing Mask difficulty assessment: 1 - vent by mask Spontaneous ventilation during airway: absent Sedation level during airway: GA Final airway details: Final airway type: endotracheal airway Tube type: ETT ETT size: 7.0 mm Cuffed: yes Technique used for successful ETT placement: video laryngoscopy Devices/Methods used in placement: stylet Insertion site: oral Blade type: Berhane Video blade type: Parrish Blade size: 3 Cormack-Lehane (direct): grade I - full view of glottis Cormack-Lehane (video): grade I - full view of glottis Cuff inflated with: air ETT to teeth: 23 cm Placement verified by: auscultation and CO2 detection Airway secured with: silk tape Number of attempts: 1 Ventilation between attempts: BVM Cooper Alonso MD ANESTHESIA ORDERABLES Fi nal Result * Type and screen (06/09/2025 6:15 AM CDT) ABO Rh O Positive Blood 06/09/2025 6:15 AM CDT 06/09/2025 6:26 AM CDT Narrative [facility] - 06/09/2025 7:16 AM CDT Has the patient had Daratumumab or Isatuximab in the past 6 months?->Unknown Sánchez Pantoja MD LAB BLOOD BANK TEST OR DERABLES Final Result Performing Organization Address [facility] Co de Phone Number [facility] Department [place] [address] * POCT hCG, urine (06/09/2025 6:00 AM CDT) HCG, ur, POC Negative Negative Lot Number [id number] QC Backgroud Clear Acceptable QC Control Line Acceptable Urine 06/09/2025 6:00 AM CDT Result [facility] Sánchez Pantoja MD POINT OF CARE TEST ORD ERABLES Final Result * TYPE AND SCREEN 14 DAY (05/19/2025 3:36 PM CDT) Mariano, indirect Negative ABO Rh O Positive [facility] Blood 05/19/2025 3:36 PM CDT 05/19/2025 4:44 PM CDT Narrative [facility] - 05/19/2025 5:47 PM CDT Has the patient had Daratumumab or Isatuximab in the past 6 months?->No Is this test being ordered in advance for a procedure?->Yes Expected date of procedure:->06/11/25 Has the patient been transfused in the past 3 months?->No Has the patient been in the past 3 months?->No Ovidio Gordon MD LAB BLOOD BANK TEST ORDERAB LES Final Result Performing Organization Address [facility]/ZIP Co de Phone Number [facility] Department [place] [address] * Differential, auto (05/19/2025 3:36 PM CDT) Neutrophil abs 5.38 1.50 - 6.50 K/cumm Imm gran abs 0.02 0.00 - 0.10 K/cumm [facility] Lymphocyte abs 2.51 0.80 - 3.30 K/cumm [facility] Monocyte abs 0.63 0.20 - 0.80 K/cumm [facility] Eosinophil abs 0.11 0.00 - 0.50 K/cumm [facility] Basophil abs 0.06 0.00 - 0.10 K/cumm [facility] Neutrophil pct 61.8 % [facility] Comment: Interpretive Data Percent cell count reference ranges are not reported, since discordance with absolute values may lead to misinterpretation of CBC data. Current Interpretive Data was last revised on 2017. Imm gran pct 0.2 % [facility] Comment: Interpretive Data Percent cell count reference ranges are not reported, since discordance with absolute values may lead to misinterpretation of CBC data. Current Interpretive Data was last revised on 2017. Lymphocyte pct 28.8 % [facility] Comment: Interpretive Data Percent cell count reference ranges are not reported, since discordance with absolute values may lead to misinterpretation of CBC data. Current Interpretive Data was last revised on 2017. Monocyte pct 7.2 % [facility] Comment: Interpretive Data Percent cell count reference ranges are not reported, since discordance with absolute values may lead to misinterpretation of CBC data. Current Interpretive Data was last revised on 2017. Eosinophil pct 1.3 % [facility] Comment: Interpretive Data Percent cell count reference ranges are not reported, since discordance with absolute values may lead to misinterpretation of CBC data. Current Interpretive Data was last revised on 2017. Basophil pct 0.7 % [facility] Comment: Interpretive Data Percent cell count reference ranges are not reported, since discordance with absolute values may lead to misinterpretation of CBC data. Current Interpretive Data was last revised on 2017. Blood 05/19/2025 3:36 PM CDT 05/19/2025 5:03 PM CDT us Ovidio Gordon MD LAB BLOOD ORDERABLES Final Result [facility] Department [place] [address] * Urinalysis reflex to microscopic and culture Urine (05/19/2025 3:36 PM CDT) Color, ur Straw Yellow Clarity, ur Clear Clear [facility] Specific gravity, ur 1.008 1.003 - 1.030 [facility] pH, urine 6.5 [facility] Comment: Interpretive Data U rine pH is affected by diet, medications, systemic acid-base disturbances, and renal tubular function. pH may affect urinary stone formation. For example, urine pH below 6.0 may help reduce the tendency for calcium phosphate stones and pH greater than 6.0 may reduce the tendency for uric acid stone formation. Source: [facility] [employer] Current Interpretive Data was last revised on 2017 Protein, ur ql Negative Negative [facility] Glucose, ur ql Negative Negative [facility] Ketones, ur Negative Negative [facility] Bilirubin, ur Negative Negative [facility] Blood, ur Negative Negative [facility] Urobilinogen, ur <2.0 <2.0 mg/dL [facility] Nitrite, ur Negative Negative [facility] Leukocyte esterase, ur Negative Negative [facility] UA reflex comment Reflex conditions for microscopic UA and culture not met. [facility] Urine 05/19/2025 3:36 PM CDT 05/19/2025 4:37 PM CDT us Sánchez Pantoja MD LAB MICROBIOLOGY - GEN ERAL ORDERABLES Final Result [facility] Department [place] [address] * CBC with auto differential (05/19/2025 3:36 PM CDT) WBC 8.71 3.80 - 9.90 K/cumm Hgb 14.5 11.9 - 15.5 g/dL [facility] Hct 40.8 35.6 - 45.5 % [facility] Plt 249 150 - 400 K/cumm [facility] MPV 10.4 9.1 - 12.3 fL [facility] RBC 4.44 3.90 - 5.20 M/cumm [facility] MCV 91.9 81.3 - 96.4 fL [facility] MCH 32.7 27.1 - 33.3 pg [facility] MCHC 35.5 32.3 - 35.7 g/dL [facility] RDW CV 13.1 11.1 - 14.9 % [facility] RDW SD 43.8 35.7 - 48.1 fL [facility] NRBC abs 0.00 0.00 - 0.01 K/cumm [facility] Blood 05/19/2025 3:36 PM CDT 05/19/2025 5:03 PM CDT us Ovidio Gordon MD LAB BLOOD ORDERABLES Final Result [facility] Department [place] [address] * hCG, urine, qualitative (05/19/2025 3:36 PM CDT) HCG, ur Negative Negative Urine 05/19/2025 3:36 PM CDT 05/19/2025 4:37 PM CDT us Sánchez Pantoja MD LAB URINE ORDERABLES F inal Result [facility] Department [place] [address] * FL Defecogram (03/21/2025 9:48 AM CDT) Anatomical Region Laterality Modality Body N/A Radio Fluoroscop y 03/21/2025 10:3 5 AM CDT Impressions 03/21/2025 10:40 AM CDT 1. Small anterior rectocele and rectal rectal intussusception. 2. Incontinence with cough. Dictated by: Nelson Brown MD The radiology attending physician has personally reviewed this study, and had reviewed and/or edited this written report and agrees with it. Electronically signed by: Benji Ochoa M.D. Narrative 03/21/2025 10:40 AM CDT EXAMINATION: DEFECOGRAM HISTORY: 39-year-old woman with uterovaginal prolapse TECHNIQUE: The patient was given oral barium to opacify the small bowel approximately 45 minutes prior to the examination. A barium soaked tampon was inserted into the vagina. Approximately 300 cc of barium was instilled rectally. The patient was then asked to cough, contract the pelvic floor, strain, and defecate. FINDINGS: The traffic signal repairer radiograph with normal bowel gas pattern. With cough, incontinence was present. With Kegel maneuvers, the pelvic floor elevated normally. With defecation, the anorectal angle became more obtuse. No rectal prolapse or enterocele. Small anterior rectocele and rectorectal intussusception. Procedure Note Benji Ochoa MD - 03/21/2025 EXAMINATION: DEFECOGRAM HISTORY: 39-year-old woman with uterovaginal prolapse TECHNIQUE: The patient was given oral barium to opacify the small bowel approximately 45 minutes prior to the examination. A barium soaked tampon was inserted into the vagina. Approximately 300 cc of barium was instilled rectally. The patient was then asked to cough, contract the pelvic floor, strain, and defecate. FINDINGS: The traffic signal repairer radiograph with normal bowel gas pattern. With cough, incontinence was present. With Kegel maneuvers, the pelvic floor elevated normally. With defecation, the anorectal angle became more obtuse. No rectal prolapse or enterocele. Small anterior rectocele and rectorectal intussusception. IMPRESSION: 1. Small anterior rectocele and rectal rectal intussusception. 2. Incontinence with cough. Dictated by: Nelson Brown MD The radiology attending physician has personally reviewed this study, and had reviewed and/or edited this written report and agrees with it. Electronically signed by: Benji Ochoa M.D. us Ovidio Gordon MD IMG FLUOROSCOPY PROCEDURES Final Result from Last 3 Months Insurance Member Subscriber Plan / Payer (Ef fective 2021-Present) Name:Le Penan Relation to Subscriber:Spouse Name:STEPHEN PENA Date of :1981 (Home) Address: [address] [address] Payer ID:[id number] (NAIC) Type:[facility] H[facility]/PPO Address: [place] [phone] Advance Directives For more information, please contact: [phone] * Full Code (Latest Code Status on File) Date Activated Date Inactivated Comments 06/09/2025 3:51 PM 06/10/2025 3:56 PM Care Teams Yarn Salvager Relationship Specialty Start Date End Date Jv Galvan MD PCP - General 07/20/17
== END 2025-06-17 07:29 | disposition home or self-care (01) ==
LOC: ANHFOHIMG 07:30
PROVIDERS: PCP Internal Medicine; Visit Provider Obstetrics & Gynecology
DX: Z12.31 Encounter for screening mammogram for malignant neoplasm of breast (principal)
CPT/HCPCS: 77063; 77067